=== PATIENT | male | born 1975 | race Caucasian/White ===

== ENCOUNTER → 2021-07-18 | Outpatient (CLI) | payer BC ==
[~2021-07-18] MED LIST: ALLOPURINOL100 MG PO; ASPIRIN CHEWABL81 MG PO; ENTRESTO 24 MG1 EACH PO; FLOMAX 0.4 MG0.4 MG PO; FUROSEMIDE40 MG PO; GABAPENTIN100 MG PO; METOPROLOL TART50 MG PO; PRILOSEC OTC20 MG PO; TYLENOL EXTRA500 MG PO
[2021-07-18 13:35] LABS: HEMOGLOBIN 8.6 gm/dl (14.0-17.5); RED BLOOD COUNT 3.54 M/UL (4.20-5.50); WHITE BLOOD COUNT 13.6 K/UL (4.5-11.0)
[2021-07-18 14:03] LABS: BUN/CREATININE RATIO 18 (0-10)
== END ==
LOC: OPSV2 12:30
PROVIDERS: Anesthesiology
DX: Z01.818 Encounter for other preprocedural examination (principal); R91.8 Other nonspecific abnormal finding of lung field; I44.7 Left bundle-branch block, unspecified; R94.31 Abnormal electrocardiogram [ECG] [EKG]; Z20.822 Contact with and (suspected) exposure to COVID-19
CPT/HCPCS: 71046; 80048; 85025; 93005

== ENCOUNTER → 2021-08-04 | Outpatient (CLI) | payer BC ==
[~2021-08-04] MED LIST changes: +PREDNISONE; +TRILOGY
== END ==
LOC: ECHO 09:00
DX: D75.839 Thrombocytosis, unspecified (principal); D64.9 Anemia, unspecified; R59.1 Generalized enlarged lymph nodes; I08.2 Rheumatic disorders of both aortic and tricuspid valves
CPT/HCPCS: ECHO; 93306

== ENCOUNTER → 2021-08-07 | Day surgery (SDC) | payer BC ==
[2021-08-07 06:33] LABS: HEMOGLOBIN 9.7 gm/dl (14.0-17.5); RED BLOOD COUNT 3.94 M/UL (4.20-5.50); WHITE BLOOD COUNT 20.1 K/UL (4.5-11.0)
[2021-08-07 07:00] LABS: BUN/CREATININE RATIO 44 (0-10)
== END | disposition home or self-care (01) ==
LOC: OR 05:37
PROVIDERS: Surgery
DX: C82.94 Follicular lymphoma, unspecified, lymph nodes of axilla and upper limb (principal); I11.0 Hypertensive heart disease with heart failure; I50.9 Heart failure, unspecified; K21.9 Gastro-esophageal reflux disease without esophagitis; Z79.82 Long term (current) use of aspirin; Z79.899 Other long term (current) drug therapy
CPT/HCPCS: 71045; 77001; 80048; 85027; C1769; C1788; J0690; J1642; J2250; J2704; J3010; J7030; J7040; J7120

== ENCOUNTER → 2021-08-14 | Outpatient (CLI) | payer BC | LOC: HEART 5 08-07 08:45 | DX: R94.31 Abnormal electrocardiogram [ECG] [EKG] (principal); R94.39 Abnormal result of other cardiovascular function study | CPT/HCPCS: 78452; A9502 ==

== ENCOUNTER → 2021-11-03 | Outpatient (CLI) | payer BC | LOC: ECHO 09:34 | DX: D75.839 Thrombocytosis, unspecified (principal); D64.9 Anemia, unspecified; R59.1 Generalized enlarged lymph nodes; C81.04 Nodular lymphocyte predominant Hodgkin lymphoma, lymph nodes of axilla and upper limb; I08.3 Combined rheumatic disorders of mitral, aortic and tricuspid valves | CPT/HCPCS: ECHO; 93306 ==